=== PATIENT | male | born 1930 | race Caucasian/White ===

== ENCOUNTER 2016-09-03 01:10 | Emergency (ER) | payer MEDICARE, OTHER ==
[~2016-09-03] VITALS: Ht 170.2 cm; Wt 73.6 kg
[~2016-09-03 01:10] MED LIST: AMBIEN 5MG TABLE5 MG PO; DICYCLOMINE10 MG PO; NASONEX0.05 MG/AC NS; PROTONIX40 MG PO; TYLENOL 325MG325 MG PO; ZOFRAN4 M1 PO
[2016-09-03 01:12] VITALS: BP 181/113; PULSE 73; TEMP 98.1
[2016-09-03] MEDS ORDERED: RT ADVAIR 128 DISKUS IH (01:21)
[2016-09-03] MEDS ORDERED: ALBUTEROL0.83 MG/ML IH (01:21)
[2016-09-03] MEDS ORDERED: KLONOPIN WAFER0.5 MG PO (01:22)
[2016-09-03] MEDS ORDERED: PARCOPA 25/101 UDTAB NG (01:22)
[2016-09-03] MEDS ORDERED: COLACE 100100 MG/CAP PO (01:22)
[2016-09-03] MEDS ORDERED: MELAT3MGTAB (01:23)
[2016-09-03] MEDS ORDERED: LINZESS145CAP (01:23)
[2016-09-03] MEDS ORDERED: MYRBETR25MG PO (01:24)
[2016-09-03] MEDS ORDERED: MULTI VITAMINS1 TAB PO (01:24)
[2016-09-03] MEDS ORDERED: ELOCON 30 ML30 ML TOP (01:24)
[2016-09-03] MEDS ORDERED: PROTONIX 40MG T40 MG PO (01:25)
[2016-09-03] MEDS ORDERED: MIRALAX PA17 GM/Dose PO (01:25)
[2016-09-03] MEDS ORDERED: K-DUR 10 MEQ T10 MEQ PO (01:26)
[2016-09-03] MEDS ORDERED: 00186-0370-20 IH (01:26)
[2016-09-03] MEDS ORDERED: TRIAMCINOLONE A15 G3 TP (01:26)
[2016-09-03] MEDS ORDERED: RESTORIL 77.5 MG/CAP PO (01:27)
[2016-09-03] MEDS ORDERED: ZOFRAN 4MG T4 MG/TAB PO (01:27)
== END 2016-09-03 02:17 | disposition home or self-care (01) ==
LOC: COL.ER 01:10
DX: S51.012A Laceration without foreign body of left elbow, initial encounter (principal); S50.02XA Contusion of left elbow, initial encounter; W22.8XXA Striking against or struck by other objects, initial encounter; Y93.E8 Activity, other personal hygiene; Y92.002 Bathroom of unspecified non-institutional (private) residence as the place of occurrence of the external cause; G20 Parkinson's disease

== ENCOUNTER 2016-09-25 10:15 | Outpatient (RCR) | payer MEDICARE, OTHER ==
[~2016-09-25 10:15] MED LIST changes: +00186-0370-20 IH; +ALBUTEROL0.83 MG/ML IH; +COLACE 100100 MG/CAP PO; +ELOCON 30 ML30 ML TOP; +K-DUR 10 MEQ T10 MEQ PO; +KLONOPIN WAFER0.5 MG PO; +LINZESS145CAP; +MELAT3MGTAB; +MIRALAX PA17 GM/Dose PO; +MULTI VITAMINS1 TAB PO; +MYRBETR25MG PO; +PARCOPA 25/101 UDTAB NG; +PROTONIX 40MG T40 MG PO; +RESTORIL 77.5 MG/CAP PO; +RT ADVAIR 128 DISKUS IH; +TRIAMCINOLONE A15 G3 TP; +ZOFRAN 4MG T4 MG/TAB PO
== END 2016-10-01 | disposition home or self-care (01) ==
LOC: WSPT
DX: G20 Parkinson's disease (principal)
CPT/HCPCS: G8978-GP; G8979-GP

== ENCOUNTER 2016-12-05 10:45 | Outpatient (RCR) | payer MEDICARE, OTHER | END 2016-12-31 | disposition home or self-care (01) | LOC: WSPT | DX: G20 Parkinson's disease (principal) | CPT/HCPCS: G8978-GP; G8979-GP; G8980-GP ==

== ENCOUNTER 2017-01-09 11:38 | Emergency (ER) | payer MEDICARE, OTHER ==
[~2017-01-09] VITALS: Ht 172.7 cm; Wt 70.5 kg
[2017-01-09 11:43] VITALS: BP 158/55; PULSE 83; TEMP 97.6
[2017-01-09 12:23] LABS: BASO % 0.2 % (0.0-2.0); EOS # 0.1 (0.0-0.7); EOS % 1.5 % (0-4.0); GRAN # 6.2 (1.4-6.5); GRAN % 70.3 % (42.2-75.2); LYMPH # 1.7 (1.2-3.4); LYMPH % 19.5 % (20.0-51.0); MEAN CELL VOLUME 89 fl (80.0-100.0); MEAN CORPUSCULAR HEMOGLOBIN 30 pg (27.0-31.0); MEAN CORPUSCULAR HGB CONC 34 g/dl (33.0-37.0); MONO # 0.7 (0.1-0.6); MONO % 7.5 % (1.7-9.3); PLATELET COUNT 292 K/mm3 (130-400); RED BLOOD COUNT 4.27 M/mm3 (4.20-5.60); REDCELL DISTRIBUTION WIDTH-CV 12.8 % (11.5-14.5); WHITE BLOOD COUNT 8.9 K/mm3 (4.8-10.8)
[2017-01-09 12:34] LABS: ADJUSTED CALCIUM 9.2 mg/dL (8.4-10.2); ALBUMIN 3.8 gm/dL (3.5-5.0); BILIRUBIN,TOTAL 0.9 mg/dL (0.0-1.0); CREATININE, serum 0.67 mg/dL (0.66-1.25); TOTAL PROTEIN 6.6 gm/dL (6.4-8.2)
[2017-01-09] MEDS ORDERED: IPRATROPIUM BROM3 M1 IH (13:41)
[2017-01-09] MEDS ORDERED: PREDNISONE20 MG PO (13:41)
== END 2017-01-09 13:55 | disposition home or self-care (01) ==
LOC: COL.ER 11:38
PROVIDERS: Emergency Medicine
DX: J45.901 Unspecified asthma with (acute) exacerbation (principal); G20 Parkinson's disease
CPT/HCPCS: J2930; J7030

== ENCOUNTER 2017-01-26 03:24 | Emergency (ER) | payer MEDICARE, OTHER ==
[~2017-01-26] VITALS: Ht 170.2 cm; Wt 70.0 kg
[~2017-01-26 03:24] MED LIST changes: +IPRATROPIUM BROM3 M1 IH; +PREDNISONE20 MG PO
[2017-01-26 03:25] VITALS: TEMP 98.9
[2017-01-26 05:20] VITALS: BP 120/78; PULSE 79
== END 2017-01-26 05:22 | disposition home or self-care (01) ==
LOC: COL.ER 03:24
DX: K20.8 Other esophagitis (principal); K21.9 Gastro-esophageal reflux disease without esophagitis; J45.909 Unspecified asthma, uncomplicated; G20 Parkinson's disease

== ENCOUNTER 2017-04-24 15:23 | Inpatient (IN) | payer MEDICARE, OTHER ==
[~2017-04-24] VITALS: Ht 170.2 cm; Wt 73.3 kg
[2017-04-24 16:01] LABS: BASO % 0.4 % (0.0-2.0); EOS # 0.3 (0.0-0.7); EOS % 2.6 % (0-4.0); GRAN # 7.6 (1.4-6.5); HEMATOCRIT 38.6 % (42.0-52.0); LYMPH # 1.4 (1.2-3.4); LYMPH % 13.7 % (20.0-51.0); MEAN CELL VOLUME 91 fl (80.0-100.0); MEAN CORPUSCULAR HEMOGLOBIN 31 pg (27.0-31.0); MEAN CORPUSCULAR HGB CONC 34 g/dl (33.0-37.0); MEAN PLATELET VOLUME 9.1 fl (7.4-10.4); MONO # 0.8 (0.1-0.6); MONO % 7.6 % (1.7-9.3); PLATELET COUNT 303 K/mm3 (130-400); RED BLOOD COUNT 4.23 M/mm3 (4.20-5.60); REDCELL DISTRIBUTION WIDTH-CV 11.6 % (11.5-14.5); WHITE BLOOD COUNT 10.2 K/mm3 (4.8-10.8)
[2017-04-24 16:11] LABS: ALBUMIN 4.2 gm/dL (3.5-5.0); BILIRUBIN,TOTAL 0.6 mg/dL (0.0-1.0); CALCIUM 9.2 mg/dL (8.4-10.2); CREATININE, serum 0.66 mg/dL (0.66-1.25); POTASSIUM 4.1 mmol/L (3.4-5.0); TOTAL PROTEIN 7.2 gm/dL (6.4-8.2)
[2017-04-24] MEDS ORDERED: ALBUTEROL0.83 MG/ML IH (16:11)
[2017-04-24] MEDS ORDERED: SINEMET 25/101 UDTAB PO (16:12)
[2017-04-24] MEDS ORDERED: SINEMET CR 50 M1 TER PO (16:12)
[2017-04-24] MEDS ORDERED: MUCINEX 60600 MG/TA1 PO (16:13)
[2017-04-24] MEDS ORDERED: MULTI VITAMINS1 TAB PO (16:13)
[2017-04-24] MEDS ORDERED: NASONEX SPRAY17 GM NS (16:13)
[2017-04-24] MEDS ORDERED: MIRALAX PA17 GM/Dose PO (16:14)
[2017-04-24] MEDS ORDERED: ZOFRAN 4MG T4 MG/TAB PO (16:14)
[2017-04-24] MEDS ORDERED: PROTONIX 40MG T40 MG PO (16:14)
[2017-04-24 19:51] LABS: HEMATOCRIT 39.1 % (42.0-52.0); HEMOGLOBIN 13.4 g/dl (13.5-18.0)
[2017-04-24 20:44] VITALS: BP 152/69; PULSE 83; TEMP 97.9
[2017-04-25] VITALS (7 sets, daily range): BP systolic 125–161; BP diastolic 52–81; PULSE 65–78; TEMP 97.2–98.5
[2017-04-25 07:52] LABS: CALCIUM 8.8 mg/dL (8.4-10.2); CREATININE, serum 0.67 mg/dL (0.66-1.25); POTASSIUM 4.2 mmol/L (3.4-5.0)
[2017-04-25 19:24] LABS: HEMOGLOBIN 12.4 g/dl (13.5-18.0)
[2017-04-25 19:26] LABS: HEMATOCRIT 36.5 % (42.0-52.0)
[2017-04-26 01:41] VITALS: BP 144/75; PULSE 71; TEMP 97.9
[2017-04-26 06:13] VITALS: BP 168/69; PULSE 74; TEMP 98.5
[2017-04-26 07:02] LABS: HEMATOCRIT 36.1 % (42.0-52.0); HEMOGLOBIN 11.9 g/dl (13.5-18.0)
[2017-04-26 10:08] VITALS: BP 158/66; PULSE 75; TEMP 98.4
[2017-04-26 14:20] VITALS: BP 154/86; PULSE 85; TEMP 98.2
[2017-04-26 17:39] VITALS: BP 153/82; PULSE 87; TEMP 98.5
== END 2017-04-26 19:00 | disposition home or self-care (01) | DRG 86 ==
LOC: COL.ER 15:23 → SURG 17:29
PROVIDERS: Emergency Medicine; Surgery
DX: S06.9X1A Unspecified intracranial injury with loss of consciousness of 30 minutes or less, initial encounter (principal); S32.019A Unspecified fracture of first lumbar vertebra, initial encounter for closed fracture; S32.029A Unspecified fracture of second lumbar vertebra, initial encounter for closed fracture; S00.03XA Contusion of scalp, initial encounter; G20 Parkinson's disease; W01.0XXA Fall on same level from slipping, tripping and stumbling without subsequent striking against object, initial encounter; Y92.008 Other place in unspecified non-institutional (private) residence as the place of occurrence of the external cause; K21.9 Gastro-esophageal reflux disease without esophagitis; E78.5 Hyperlipidemia, unspecified; G62.9 Polyneuropathy, unspecified; H53.2 Diplopia
CPT/HCPCS: A9284; A9585; G0378; G8978-GP; G8979-GP; J1885; J2060; J2270; J2405; J7042; Q9967

== ENCOUNTER 2017-05-28 00:17 | Emergency (ER) | payer MEDICARE, OTHER ==
[~2017-05-28 00:17] MED LIST changes: +MUCINEX 60600 MG/TA1 PO; +NASONEX SPRAY17 GM NS; +SINEMET 25/101 UDTAB PO; +SINEMET CR 50 M1 TER PO
[2017-05-28 00:20] VITALS: BP 152/78; TEMP 98.1
[2017-05-28] MEDS ORDERED: COCONUT OIL 2525 ML PO (00:56)
[2017-05-28 01:11] LABS: BASO % 0.5 % (0.0-2.0); EOS # 0.3 (0.0-0.7); EOS % 3.9 % (0-4.0); GRAN # 5.8 (1.4-6.5); GRAN % 67.9 % (42.2-75.2); HEMATOCRIT 38.6 % (42.0-52.0); HEMOGLOBIN 12.9 g/dl (13.5-18.0); LYMPH # 1.7 (1.2-3.4); LYMPH % 19.4 % (20.0-51.0); MEAN CELL VOLUME 91 fl (80.0-100.0); MEAN CORPUSCULAR HEMOGLOBIN 30 pg (27.0-31.0); MEAN CORPUSCULAR HGB CONC 33 g/dl (33.0-37.0); MEAN PLATELET VOLUME 9.1 fl (7.4-10.4); MONO # 0.7 (0.1-0.6); MONO % 8.1 % (1.7-9.3); PLATELET COUNT 311 K/mm3 (130-400); RED BLOOD COUNT 4.24 M/mm3 (4.20-5.60); WHITE BLOOD COUNT 8.5 K/mm3 (4.8-10.8)
[2017-05-28 01:12] LABS: INR 0.9 (0.8-3.0); PROTHROMBIN TIME 10.2 SECONDS (9.7-12.8)
[2017-05-28 01:15] LABS: PARTIAL THROMBOPLASTIN TIME 31.6 SECONDS (26.0-37.0)
[2017-05-28 01:24] LABS: B-TYPE NATRIURETIC PEPTIDE 143 pg/mL (0-450)
[2017-05-28 01:53] LABS: TROPONIN-I < 0.012 ng/mL (0.000-0.034)
[2017-05-28] MEDS ORDERED: SUDAFED30 MG PO (02:03)
[2017-05-28] MEDS ORDERED: ZITHROMAX500 M2 PO (02:03)
[2017-05-28] MEDS ORDERED: TESSALON PERLE200 MG PO (02:03)
[2017-05-28 02:26] VITALS: PULSE 78
[2017-05-28 02:28] LABS: ADJUSTED CALCIUM 9.2 mg/dL (8.4-10.2); ALANINE AMINOTRANSFERASE 25 U/L (21-72); ALBUMIN 4.6 gm/dL (3.5-5.0); ALKALINE PHOSPHATASE 70 U/L (50-136); ANION GAP 14 mmol/L (7-16); BILIRUBIN,TOTAL 0.7 mg/dL (0.0-1.0); BLOOD UREA NITROGEN 19 mg/dL (9-20); CALCIUM 9.7 mg/dL (8.4-10.2); CARBON DIOXIDE 22 mmol/L (22-30); CHLORIDE 100 mmol/L (98-107); CREATININE, serum 0.66 mg/dL (0.66-1.25); GLUCOSE 95 mg/dL (74-106); POTASSIUM 4.5 mmol/L (3.4-5.0); SODIUM 136 mmol/L (137-145); TOTAL PROTEIN 7.8 gm/dL (6.4-8.2)
== END 2017-05-28 02:27 | disposition home or self-care (01) ==
LOC: COL.ER 00:17
PROVIDERS: Emergency Medicine
DX: J42 Unspecified chronic bronchitis (principal); E78.5 Hyperlipidemia, unspecified; G20 Parkinson's disease; K21.9 Gastro-esophageal reflux disease without esophagitis; G62.9 Polyneuropathy, unspecified; Z86.69 Personal history of other diseases of the nervous system and sense organs; Z90.89 Acquired absence of other organs; Z98.890 Other specified postprocedural states

== ENCOUNTER → 2017-06-11 | Outpatient (CLI) | payer MEDICARE, OTHER ==
[~2017-06-11] MED LIST changes: +COCONUT OIL 2525 ML PO; +SUDAFED30 MG PO; +TESSALON PERLE200 MG PO; +ZITHROMAX500 M2 PO
== END ==
LOC: COL.VAS 13:55
DX: R06.02 Shortness of breath (principal)

== ENCOUNTER → 2017-06-14 | Outpatient (CLI) | payer MEDICARE, OTHER | LOC: COL.RAD 14:22 | DX: S79.911A Unspecified injury of right hip, initial encounter (principal); M16.11 Unilateral primary osteoarthritis, right hip; W19.XXXA Unspecified fall, initial encounter ==

== ENCOUNTER 2017-07-23 10:45 | Outpatient (RCR) | payer MEDICARE, OTHER | END 2017-07-29 | disposition still patient (30) | LOC: WSPT | DX: S32.018D Other fracture of first lumbar vertebra, subsequent encounter for fracture with routine healing (principal); S32.028D Other fracture of second lumbar vertebra, subsequent encounter for fracture with routine healing; R26.89 Other abnormalities of gait and mobility; W01.198D Fall on same level from slipping, tripping and stumbling with subsequent striking against other object, subsequent encounter | CPT/HCPCS: G8978-GP; G8979-GP; G8980-GP ==

== ENCOUNTER 2017-08-16 06:58 | Day surgery (SDC) | payer MEDICARE, OTHER ==
[~2017-08-16] VITALS: Ht 170.2 cm; Wt 68.8 kg
[2017-08-16] MEDS ORDERED: BEVESPI AEROS10.7 GM IH (07:27)
[2017-08-16] MEDS ORDERED: CLARISPRAY9.9 ML NS (07:28)
[2017-08-16] MEDS ORDERED: SINGULAIR 110 MG/TAB PO (07:29)
[2017-08-16] MEDS ORDERED: PRELIEF PO (07:31)
[2017-08-16] MEDS ORDERED: PROAIR HFA0.09 MG/AC IH (07:32)
[2017-08-16] MEDS ORDERED: PREDNISONE20 MG PO (07:33)
[2017-08-16 07:40] VITALS: BP 169/89; PULSE 81; TEMP 97.7
[2017-08-16 09:00] VITALS: BP 136/77; PULSE 70; TEMP 97.5
[2017-08-16 09:15] VITALS: BP 150/83; PULSE 68
[2017-08-16 09:30] VITALS: BP 142/78; PULSE 65
[2017-08-16 09:45] VITALS: BP 145/74; PULSE 67
[2017-08-16 10:28] VITALS: BP 139/76; PULSE 62
== END 2017-08-16 10:15 | disposition home or self-care (01) ==
LOC: SDCO 06:58
DX: D12.2 Benign neoplasm of ascending colon (principal); K57.30 Diverticulosis of large intestine without perforation or abscess without bleeding; R19.7 Diarrhea, unspecified; K59.00 Constipation, unspecified; Z86.010 Personal history of colon polyps; Z88.6 Allergy status to analgesic agent; Z88.0 Allergy status to penicillin; G20 Parkinson's disease; D64.9 Anemia, unspecified; R63.4 Abnormal weight loss
CPT/HCPCS: OP; J2250; J2405; J3010; J7030

== ENCOUNTER → 2017-09-10 | Outpatient (CLI) | payer MEDICARE, OTHER ==
[~2017-09-10] MED LIST changes: +BEVESPI AEROS10.7 GM IH; +CLARISPRAY9.9 ML NS; +PRELIEF PO; +PROAIR HFA0.09 MG/AC IH; +SINGULAIR 110 MG/TAB PO
== END ==
LOC: MHCPAIN 10:28
DX: G89.29 Other chronic pain (principal); M47.27 Other spondylosis with radiculopathy, lumbosacral region; M53.3 Sacrococcygeal disorders, not elsewhere classified; M47.814 Spondylosis without myelopathy or radiculopathy, thoracic region; Z87.891 Personal history of nicotine dependence
CPT/HCPCS: G0463

== ENCOUNTER → 2017-10-10 | Outpatient (CLI) | payer MEDICARE, OTHER | LOC: MHCPAIN 09:05 | DX: Z53.8 Procedure and treatment not carried out for other reasons (principal) | CPT/HCPCS: J1100; Q9967 ==

== ENCOUNTER → 2017-10-23 | Outpatient (CLI) | payer MEDICARE, OTHER | LOC: MHCPAIN 10:43 | DX: G89.29 Other chronic pain (principal); M47.817 Spondylosis without myelopathy or radiculopathy, lumbosacral region; M54.16 Radiculopathy, lumbar region; M53.3 Sacrococcygeal disorders, not elsewhere classified; M47.814 Spondylosis without myelopathy or radiculopathy, thoracic region; M48.061 Spinal stenosis, lumbar region without neurogenic claudication | CPT/HCPCS: G0463 ==

== ENCOUNTER 2017-12-03 10:30 | Outpatient (RCR) | payer MEDICARE, OTHER | END 2017-12-04 | LOC: WSPT | DX: S32.018D Other fracture of first lumbar vertebra, subsequent encounter for fracture with routine healing (principal); S32.028D Other fracture of second lumbar vertebra, subsequent encounter for fracture with routine healing; S22.089D Unspecified fracture of T11-T12 vertebra, subsequent encounter for fracture with routine healing | CPT/HCPCS: G8978-GP; G8979-GP ==

== ENCOUNTER → 2017-12-31 | Outpatient (CLI) | payer MEDICARE, OTHER | LOC: COL.RAD 07:17 | DX: I66.22 Occlusion and stenosis of left posterior cerebral artery (principal); G31.9 Degenerative disease of nervous system, unspecified; I67.9 Cerebrovascular disease, unspecified; M48.8X2 Other specified spondylopathies, cervical region; M48.02 Spinal stenosis, cervical region; M50.322 Other cervical disc degeneration at C5-C6 level; M50.223 Other cervical disc displacement at C6-C7 level; G20 Parkinson's disease | CPT/HCPCS: A9585 ==

== ENCOUNTER 2018-02-07 22:37 | Emergency (ER) | payer MEDICARE, OTHER ==
[2018-02-07 22:41] VITALS: BP 193/90; TEMP 97.6
[2018-02-08 00:48] VITALS: PULSE 78
== END 2018-02-08 00:49 | disposition home or self-care (01) ==
LOC: COL.ER 22:37
DX: S50.02XA Contusion of left elbow, initial encounter (principal); J45.909 Unspecified asthma, uncomplicated; K21.9 Gastro-esophageal reflux disease without esophagitis; E78.5 Hyperlipidemia, unspecified; Z79.51 Long term (current) use of inhaled steroids; W01.10XA Fall on same level from slipping, tripping and stumbling with subsequent striking against unspecified object, initial encounter; Y92.009 Unspecified place in unspecified non-institutional (private) residence as the place of occurrence of the external cause

== ENCOUNTER 2018-03-04 13:45 | Outpatient (RCR) | payer MEDICARE, OTHER | END 2018-03-05 | disposition home or self-care (01) | LOC: WSPT | DX: M25.552 Pain in left hip (principal); S22.088D Other fracture of T11-T12 vertebra, subsequent encounter for fracture with routine healing | CPT/HCPCS: G8978-GP; G8979-GP ==

== ENCOUNTER → 2018-03-24 | Outpatient (CLI) | payer MEDICARE, OTHER | LOC: COL.PUL 10:00 | DX: G20 Parkinson's disease (principal); G12.21 Amyotrophic lateral sclerosis ==

== ENCOUNTER → 2018-04-09 | Outpatient (CLI) | payer MEDICARE, OTHER | LOC: COL.PUL 09:52 | DX: G20 Parkinson's disease (principal); G12.21 Amyotrophic lateral sclerosis ==

== ENCOUNTER 2018-04-24 20:04 | Emergency (ER) | payer MEDICARE, OTHER ==
[~2018-04-24] VITALS: Ht 172.7 cm; Wt 68.2 kg
[2018-04-24 20:06] VITALS: TEMP 98.7
[2018-04-24 21:40] VITALS: BP 168/90; PULSE 87
== END 2018-04-24 21:50 | disposition home or self-care (01) ==
LOC: COL.ER 20:04
DX: S01.01XA Laceration without foreign body of scalp, initial encounter (principal); G20 Parkinson's disease; Z79.51 Long term (current) use of inhaled steroids; W19.XXXA Unspecified fall, initial encounter; Y92.009 Unspecified place in unspecified non-institutional (private) residence as the place of occurrence of the external cause

== ENCOUNTER 2018-04-30 13:08 | Emergency (ER) | payer MEDICARE, OTHER ==
[2018-04-30 13:22] VITALS: PULSE 79
== END 2018-04-30 13:23 | disposition home or self-care (01) ==
LOC: COL.ER 13:08
DX: Z48.02 Encounter for removal of sutures (principal)

== ENCOUNTER 2018-06-17 13:00 | Outpatient (RCR) | payer MEDICARE, OTHER ==
[2018-07-18] MEDS ORDERED: PULMICORT0.5 MG/2 M IH (23:32)
[2018-07-18] MEDS ORDERED: ZYRTEC10MGSGL (23:34)
[2018-07-18] MEDS ORDERED: RILUTEK 50MG TA50 MG PO (23:36)
[2018-07-19] MEDS ORDERED: MUCINEX FAST-M177 M2 PO (11:32)
[2018-07-21] MEDS ORDERED: IPRATROPIUM BROM3 M1 IH (11:26)
[2018-08-13] MEDS ORDERED: KLONOPIN 0.5MG0.5 MG (00:02)
[2018-08-13] MEDS ORDERED: LEVAQUIN 750MG750 M1 PO (02:37)
[2018-08-13] MEDS ORDERED: CLEOCIN HCL300 MG PO (02:37)
[2018-08-13] MEDS ORDERED: SODIUM CHLORIDE1 GM PO (02:40)
== END 2019-03-24 ==
LOC: WSOT
DX: G12.21 Amyotrophic lateral sclerosis (principal)

== ENCOUNTER 2018-06-27 22:53 | Emergency (ER) | payer MEDICARE, OTHER ==
[~2018-06-27] VITALS: Ht 170.2 cm; Wt 68.2 kg
[2018-06-27 23:09] VITALS: TEMP 97.6
[2018-06-27 23:59] LABS: BASO # 0.1 (0.0-0.2); BASO % 0.3 % (0.0-2.0); EOS # 0.1 (0.0-0.7); EOS % 0.5 % (0-4.0); GRAN # 14.5 (1.4-6.5); GRAN % 86.1 % (42.2-75.2); HEMOGLOBIN 12.1 g/dl (13.5-18.0); LYMPH # 0.9 (1.2-3.4); LYMPH % 5.5 % (20.0-51.0); MEAN CELL VOLUME 94 fl (80.0-100.0); MEAN CORPUSCULAR HEMOGLOBIN 32 pg (27.0-31.0); MEAN CORPUSCULAR HGB CONC 34 g/dl (33.0-37.0); MEAN PLATELET VOLUME 8.8 fl (7.4-10.4); MONO # 1.2 (0.1-0.6); MONO % 6.9 % (1.7-9.3); PLATELET COUNT 297 K/mm3 (130-400); RED BLOOD COUNT 3.82 M/mm3 (4.20-5.60); REDCELL DISTRIBUTION WIDTH-CV 11.6 % (11.5-14.5)
[2018-06-28 00:13] LABS: HEMATOCRIT 35.8 % (42.0-52.0)
[2018-06-28 00:19] LABS: ALBUMIN 4.2 gm/dL (3.5-5.0); BILIRUBIN,TOTAL 0.6 mg/dL (0.0-1.0); CALCIUM 9.2 mg/dL (8.4-10.2); CREATININE, serum 0.47 mg/dL (0.66-1.25); POTASSIUM 4.4 mmol/L (3.4-5.0); TOTAL PROTEIN 7.3 gm/dL (6.4-8.2)
[2018-06-28 04:37] VITALS: BP 133/70; PULSE 76
== END 2018-06-28 04:40 | disposition left against medical advice (07) ==
LOC: COL.ER 22:53
PROVIDERS: Emergency Medicine
DX: K59.00 Constipation, unspecified (principal); D72.829 Elevated white blood cell count, unspecified; K80.20 Calculus of gallbladder without cholecystitis without obstruction; J45.909 Unspecified asthma, uncomplicated; K21.9 Gastro-esophageal reflux disease without esophagitis; G20 Parkinson's disease; E78.5 Hyperlipidemia, unspecified; Z98.890 Other specified postprocedural states; Z79.51 Long term (current) use of inhaled steroids; Z90.5 Acquired absence of kidney
CPT/HCPCS: J7030; Q9967

== ENCOUNTER 2018-07-18 21:17 | Inpatient (IN) | payer MEDICARE, OTHER ==
[~2018-07-18] VITALS: Ht 170.2 cm; Wt 67.5 kg
[2018-07-18 21:59] LABS: BASO % 0.3 % (0.0-2.0); EOS # 0.5 (0.0-0.7); EOS % 4.8 % (0-4.0); GRAN # 7.4 (1.4-6.5); GRAN % 77.4 % (42.2-75.2); HEMOGLOBIN 12.3 g/dl (13.5-18.0); LYMPH # 0.9 (1.2-3.4); LYMPH % 8.9 % (20.0-51.0); MEAN CELL VOLUME 93 fl (80.0-100.0); MEAN CORPUSCULAR HEMOGLOBIN 32 pg (27.0-31.0); MEAN CORPUSCULAR HGB CONC 34 g/dl (33.0-37.0); MEAN PLATELET VOLUME 8.5 fl (7.4-10.4); MONO # 0.8 (0.1-0.6); MONO % 8.3 % (1.7-9.3); PLATELET COUNT 277 K/mm3 (130-400); RED BLOOD COUNT 3.87 M/mm3 (4.20-5.60); REDCELL DISTRIBUTION WIDTH-CV 11.5 % (11.5-14.5)
[2018-07-18 22:10] LABS: ALBUMIN 4.1 gm/dL (3.5-5.0); BILIRUBIN,TOTAL 0.4 mg/dL (0.0-1.0); CREATININE, serum 0.47 mg/dL (0.66-1.25); POTASSIUM 4.2 mmol/L (3.4-5.0); TOTAL PROTEIN 7.2 gm/dL (6.4-8.2)
[2018-07-18 22:21] LABS: TROPONIN-I 0.028 ng/mL (0.000-0.034)
[2018-07-18 23:19] LABS: COLLECTION METHOD CLEAN CATCH
[2018-07-18 23:31] LABS: MUCOUS Present /lpf; PH 7 (5-8); SQUAMOUS EPITHELIAL None Seen /hpf; URINE APPEARANCE Clear; URINE BACTERIA None Seen /hpf; URINE BILIRUBIN Negative (NEGATIVE); URINE BLOOD Negative (NEGATIVE); URINE COLOR Yellow; URINE GLUCOSE Negative (NEGATIVE); URINE KETONE 1+ (NEGATIVE); URINE LEUKOCYTE ESTERASE Negative (NEGATIVE); URINE NITRATE Negative (NEGATIVE); URINE PROTEIN(semi-quant) 2+ (NEGATIVE); URINE UROBILINOGEN Negative (NEGATIVE)
[2018-07-18] MEDS ORDERED: PULMICORT0.5 MG/2 M IH (23:32)
[2018-07-18] MEDS ORDERED: ZYRTEC10MGSGL (23:34)
[2018-07-18] MEDS ORDERED: RILUTEK 50MG TA50 MG PO (23:36)
[2018-07-19] VITALS (7 sets, daily range): BP systolic 111–162; BP diastolic 50–66; PULSE 71–96; TEMP 97.6–98.5
[2018-07-19 01:01] LABS: TROPONIN-I 3 HR POST INITIAL 0.119 ng/mL (0.000-0.034)
[2018-07-19 01:32] LABS: ARTERIAL BLD GAS O2 SATURATION 91.5 % (92-100); ARTERIAL BLD GAS TCO2 CT 30.7; ARTERIAL BLOOD GAS BASE EXCESS 3.6 (-2-2); ARTERIAL BLOOD GAS HCO3 29.2 meq/L (22-26); ARTERIAL BLOOD GAS PCO2 48.7 mmHg (35-45); ARTERIAL BLOOD GAS PO2 58.2 mmHg (80-100)
[2018-07-19 03:57] LABS: BASO % 0.2 % (0.0-2.0); EOS # 0.3 (0.0-0.7); EOS % 3.4 % (0-4.0); GRAN # 7.9 (1.4-6.5); GRAN % 78.7 % (42.2-75.2); HEMOGLOBIN 10.9 g/dl (13.5-18.0); LYMPH # 0.9 (1.2-3.4); LYMPH % 8.5 % (20.0-51.0); MEAN CELL VOLUME 93 fl (80.0-100.0); MEAN CORPUSCULAR HEMOGLOBIN 31 pg (27.0-31.0); MEAN CORPUSCULAR HGB CONC 34 g/dl (33.0-37.0); MEAN PLATELET VOLUME 8.3 fl (7.4-10.4); MONO # 0.9 (0.1-0.6); MONO % 8.8 % (1.7-9.3); PLATELET COUNT 235 K/mm3 (130-400); RED BLOOD COUNT 3.49 M/mm3 (4.20-5.60); REDCELL DISTRIBUTION WIDTH-CV 11.5 % (11.5-14.5)
[2018-07-19 04:02] LABS: HEMATOCRIT 32.5 % (42.0-52.0)
[2018-07-19 04:17] LABS: ALBUMIN 3.4 gm/dL (3.5-5.0); BILIRUBIN,TOTAL 0.4 mg/dL (0.0-1.0); CALCIUM 8.4 mg/dL (8.4-10.2); CREATININE, serum 0.41 mg/dL (0.66-1.25); POTASSIUM 4.3 mmol/L (3.4-5.0); TOTAL PROTEIN 6.1 gm/dL (6.4-8.2)
[2018-07-19 04:30] LABS: TROPONIN-I 0.143 ng/mL (0.000-0.034)
[2018-07-19] MEDS ORDERED: MUCINEX FAST-M177 M2 PO (11:32)
[2018-07-20 03:47] VITALS: BP 158/78; PULSE 81
[2018-07-20 07:35] VITALS: BP 141/95; PULSE 70; TEMP 98.8
[2018-07-20 09:48] LABS: BASO % 0.5 % (0.0-2.0); EOS # 0.5 (0.0-0.7); EOS % 5.9 % (0-4.0); GRAN # 6.1 (1.4-6.5); GRAN % 77.6 % (42.2-75.2); HEMATOCRIT 35.5 % (42.0-52.0); HEMOGLOBIN 11.6 g/dl (13.5-18.0); LYMPH # 0.8 (1.2-3.4); LYMPH % 9.7 % (20.0-51.0); MEAN CELL VOLUME 96 fl (80.0-100.0); MEAN CORPUSCULAR HEMOGLOBIN 31 pg (27.0-31.0); MEAN CORPUSCULAR HGB CONC 33 g/dl (33.0-37.0); MEAN PLATELET VOLUME 8.6 fl (7.4-10.4); MONO # 0.5 (0.1-0.6); MONO % 5.8 % (1.7-9.3); PLATELET COUNT 286 K/mm3 (130-400); RED BLOOD COUNT 3.71 M/mm3 (4.20-5.60); REDCELL DISTRIBUTION WIDTH-CV 11.6 % (11.5-14.5)
[2018-07-20 10:04] LABS: ALBUMIN 3.7 gm/dL (3.5-5.0); BILIRUBIN,TOTAL 0.4 mg/dL (0.0-1.0); CALCIUM 8.9 mg/dL (8.4-10.2); CREATININE, serum 0.45 mg/dL (0.66-1.25); TOTAL PROTEIN 6.7 gm/dL (6.4-8.2)
[2018-07-20 12:30] VITALS: BP 142/79; PULSE 78; TEMP 98.1
[2018-07-20 15:58] VITALS: BP 119/53; PULSE 71; TEMP 98.4
[2018-07-20 20:48] VITALS: BP 149/74; PULSE 71; TEMP 97.8
[2018-07-21 02:46] VITALS: BP 102/77; PULSE 94; TEMP 98.2
[2018-07-21 03:55] VITALS: BP 111/53; PULSE 79; TEMP 98.1
[2018-07-21 07:28] VITALS: BP 157/66; PULSE 81; TEMP 98.4
[2018-07-21 08:04] LABS: BASO % 0.4 % (0.0-2.0); EOS # 0.6 (0.0-0.7); EOS % 6.2 % (0-4.0); HEMOGLOBIN 11.7 g/dl (13.5-18.0); LYMPH % 10.4 % (20.0-51.0); MEAN CELL VOLUME 96 fl (80.0-100.0); MEAN CORPUSCULAR HEMOGLOBIN 32 pg (27.0-31.0); MEAN CORPUSCULAR HGB CONC 33 g/dl (33.0-37.0); MEAN PLATELET VOLUME 8.8 fl (7.4-10.4); MONO # 0.8 (0.1-0.6); MONO % 8.6 % (1.7-9.3); PLATELET COUNT 286 K/mm3 (130-400); REDCELL DISTRIBUTION WIDTH-CV 11.5 % (11.5-14.5)
[2018-07-21 08:05] LABS: HEMATOCRIT 35.4 % (42.0-52.0)
[2018-07-21 08:13] LABS: CALCIUM 8.9 mg/dL (8.4-10.2); CREATININE, serum 0.46 mg/dL (0.66-1.25); POTASSIUM 4.2 mmol/L (3.4-5.0)
[2018-07-21] MEDS ORDERED: IPRATROPIUM BROM3 M1 IH (11:26)
[2018-07-21 11:30] VITALS: BP 150/74; PULSE 74; TEMP 98.6
[2018-07-21 12:20] VITALS: BP 150/74; PULSE 74; TEMP 98.6
== END 2018-07-21 14:10 | DRG 56 ==
LOC: COL.ER 21:17 → MEDICAL 23:16
PROVIDERS: Emergency Medicine; Hospitalist; Nurse Practitioner Family
DX: G12.21 Amyotrophic lateral sclerosis (principal); J96.21 Acute and chronic respiratory failure with hypoxia; I21.A1 Myocardial infarction type 2; E87.1 Hypo-osmolality and hyponatremia; Z66 Do not resuscitate; G20 Parkinson's disease; J45.909 Unspecified asthma, uncomplicated; W18.30XA Fall on same level, unspecified, initial encounter; Z91.81 History of falling; D64.9 Anemia, unspecified
CPT/HCPCS: 99232-AI; 99239; J1650; J2270; J3010; J7030

== ENCOUNTER 2018-08-12 22:57 | Emergency (ER) | payer MEDICARE, OTHER ==
[~2018-08-12] VITALS: Ht 170.2 cm; Wt 68.2 kg
[~2018-08-12 22:57] MED LIST changes: +MUCINEX FAST-M177 M2 PO; +PULMICORT0.5 MG/2 M IH; +RILUTEK 50MG TA50 MG PO; +ZYRTEC10MGSGL
[2018-08-12 22:59] VITALS: TEMP 97.9
[2018-08-12 23:27] LABS: BASO # 0.1 (0.0-0.2); BASO % 0.7 % (0.0-2.0); EOS # 0.4 (0.0-0.7); GRAN # 6.4 (1.4-6.5); GRAN % 71.8 % (42.2-75.2); LYMPH % 11.2 % (20.0-51.0); MEAN CELL VOLUME 92 fl (80.0-100.0); MEAN CORPUSCULAR HEMOGLOBIN 31 pg (27.0-31.0); MEAN CORPUSCULAR HGB CONC 34 g/dl (33.0-37.0); MEAN PLATELET VOLUME 8.5 fl (7.4-10.4); MONO % 10.8 % (1.7-9.3); PLATELET COUNT 304 K/mm3 (130-400); RED BLOOD COUNT 3.54 M/mm3 (4.20-5.60); REDCELL DISTRIBUTION WIDTH-CV 11.5 % (11.5-14.5)
[2018-08-12 23:28] LABS: HEMATOCRIT 32.7 % (42.0-52.0)
[2018-08-12 23:38] LABS: ALANINE AMINOTRANSFERASE 35 U/L (21-72); ALKALINE PHOSPHATASE 64 U/L (50-136); ANION GAP 5 mmol/L (7-16); AST,SGOT 36 U/L (15-37); BILIRUBIN,TOTAL 0.6 mg/dL (0.0-1.0); BLOOD UREA NITROGEN 11 mg/dL (9-20); CALCIUM 9.3 mg/dL (8.4-10.2); CARBON DIOXIDE 33 mmol/L (22-30); GLUCOSE 105 mg/dL (74-106); POTASSIUM 4.4 mmol/L (3.4-5.0); SODIUM 126 mmol/L (137-145); TOTAL PROTEIN 7.1 gm/dL (6.4-8.2)
[2018-08-12 23:39] LABS: CHLORIDE 88 mmol/L (98-107)
[2018-08-12 23:49] LABS: TROPONIN-I < 0.012 ng/mL (0.000-0.034)
[2018-08-13] MEDS ORDERED: KLONOPIN 0.5MG0.5 MG (00:02)
[2018-08-13] MEDS ORDERED: LEVAQUIN 750MG750 M1 PO (02:37)
[2018-08-13] MEDS ORDERED: CLEOCIN HCL300 MG PO (02:37)
[2018-08-13] MEDS ORDERED: SODIUM CHLORIDE1 GM PO (02:40)
[2018-08-13 03:22] VITALS: BP 124/79; PULSE 91
== END 2018-08-13 03:24 ==
LOC: COL.ER 22:57
PROVIDERS: Emergency Medicine
DX: R06.02 Shortness of breath (principal); E87.1 Hypo-osmolality and hyponatremia; R05 Cough; F20.9 Schizophrenia, unspecified; E78.5 Hyperlipidemia, unspecified; K21.9 Gastro-esophageal reflux disease without esophagitis; J45.909 Unspecified asthma, uncomplicated
CPT/HCPCS: J7030